=== PATIENT | female | born 1970 | race Caucasian/White ===

== ENCOUNTER 2020-04-07 12:22 | Emergency (ER) | payer BC ==
[~2020-04-07] VITALS: Ht 162.6 cm; Wt 61.5 kg
[2020-04-07 12:22] VITALS: BP 121/62
[2020-04-07] MEDS ORDERED: PRED-220 PO (13:00)
[2020-04-07] MEDS ORDERED: HYDR-3165 PO (13:00)
--- NOTE | 2020-04-07 13:01 | PHYS DOC ---
General Adult EDM: Chief Complaint: SHOULDER INJURY HPI: HPI: 49-year-old female presents with a left arm and shoulder pain. The patient has been having numbness and tingling in her third and fourth digits mostly at night for the last couple of weeks. It has gotten worse this week so she went to the chiropractor. She had an adjustment of her neck couple of days ago. Over the last 2 days, her numbness is spread and now she has tingling in the funny sensation in all 5 fingers. The pain now radiates up past her elbow all the way to her shoulder. Today it is a throbbing sensation and she had a lot of difficulty sleeping last night. Patient has tried heat at home without relief. She has not taken any medication. No history of previous shoulder or neck trauma. No surgical history in this area. 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 Review of Systems: Review of Systems: Constitutional: Denies fever or chills Eyes: Denies change in visual acuity HENT: Denies nasal congestion or sore throat Respiratory: Denies cough or shortness of breath Cardiovascular: Denies chest pain or edema GI: Denies abdominal pain, nausea, vomiting, bloody stools or diarrhea : Denies dysuria Musculoskeletal: Left shoulder and arm pain Integument: Denies rash Neurologic: Denies headache, focal weakness or sensory changes Endocrine: Denies polyuria or polydipsia Lymphatic: Denies swollen glands Psychiatric: Denies depression or anxiety Allergies: Allergies: Allergies Coded Allergies Type Severity Reaction Last Updated Verified No Known Drug Allergies 04/07/20 No Physical Exam: PE: Constitutional: Well developed, well nourished, no acute distress, non-toxic appearance. [] HENT: Normocephalic, atraumatic, bilateral external ears normal, oropharynx moist, no oral exudates, nose normal. [] Eyes: PERRLA, EOMI, conjunctiva normal, no discharge. [] Neck: Normal range of motion, no tenderness, supple, no stridor. [] Cardiovascular:Heart rate regular rhythm, no murmur [] Lungs & Thorax: Bilateral breath sounds clear to auscultation [] Abdomen: Bowel sounds normal, soft, no tenderness, no masses, no pulsatile masses. [] Skin: Warm, dry, no erythema, no rash. [] Back: No tenderness, no CVA tenderness. [] Extremities: Worsening of symptoms with compression over the carpal tunnel. Shoulder normal range of motion. [] Neurologic: Alert and oriented X 3, normal motor function, normal sensory function, no focal deficits noted. [] Psychologic: Affect normal, judgement normal, mood normal. [] EKG: EKG: [] Radiology/Procedures: Radiology/Procedures: [] Impressions: CERVICAL SPINE 2-3V DATE: 04/07/2020 12:50 PM INDICATION: Reason: radiculopathy / Spl. Instructions: Pt unable to remove earrings, pt shielded / History: COMPARISON: None. FINDINGS: The cervical spine is visualized to the level of the cervicothoracic junction on the lateral views. Bones/Alignment: No evidence of acute fracture. There is no listhesis. Normal alignment of the lateral masses of C1 on C2. Joints: Mild degenerative disc disease The facets are normally aligned. Soft tissue: No significant prevertebral soft tissue swelling. IMPRESSION: Mild cervical spondylosis Electronically signed by: Maribell Cuevas MD (04/07/2020 1:22 PM) [id number] DICTATED AND SIGNED BY: MARIBELL CUEVAS MD DATE: 04/07/20 1322 CC: RICHARDSON ENRIQUEZ DO; PCP,NO ~ Heart Score: Risk Factors: Risk Factors: DM, Current or recent (<one month) smoker, HTN, HLP, family history of CAD, obesity. Risk Scores: Score 0 - 3: 2.5% MACE over next 6 weeks - Discharge Home Score 4 - 6: 20.3% MACE over next 6 weeks - Admit for Clinical Observation Score 7 - 10: 72.7% MACE over next 6 weeks - Early Invasive Strategies Course & Med Decision Making: Course & Med Decision Making Pertinent Labs and Imaging studies reviewed. (See chart for details) The patient's story is consistent with carpal tunnel. The extension to the other fingers and expansion of the arm is likely due to some swelling of the nerves in the neck. I will treat her with steroids and [place] for the next couple days. She is stable for discharge at this time. [] Dragon Disclaimer: Dragon Disclaimer: This electronic medical record was generated, in whole or in part, using a voice recognition dictation system. Departure Departure: Impression: Primary Impression: Carpal tunnel syndrome, left Additional Impression: Cervical radiculopathy Disposition: 01 DC HOME SELF CARE/HOMELESS Condition: STABLE Referrals: PCP,HONG (PCP) Scripts Prednisone (PREDNISONE) 10 Mg Tablet 10 MG PO UD for PREDNISONE TAPER, #24 TAB 0 Refills Take 4 tablets by mouth daily for 3 days, then take 3 tablets by mouth daily for 2 days, then take 2 tablet by mouth daily for 2 days, then take 1 tablet by mouth daily for 2 days, then stop. Prov: RICHARDSON ENRIQUEZ DO 04/07/20 Hydrocodone Bit/Acetaminophen (NORCO 5-325 TABLET) 1 Each Tablet 1 TAB PO PRN Q6HRS PRN for PAIN, #10 TAB 0 Refills Prov: RICHARDSON ENRIQUEZ DO 04/07/20 RICHARDSON ENRIQUEZ DO Apr 07, 2020 13:01
--- NOTE | 2020-04-07 13:25 | RAD ---
CERVICAL SPINE 2-3V DATE: 04/07/2020 12:50 PM INDICATION: Reason: radiculopathy / Spl. Instructions: Pt unable to remove earrings, pt shielded / History: COMPARISON: None. FINDINGS: The cervical spine is visualized to the level of the cervicothoracic junction on the lateral views. Bones/Alignment: No evidence of acute fracture. There is no listhesis. Normal alignment of the lateral masses of C1 on C2. Joints: Mild degenerative disc disease The facets are normally aligned. Soft tissue: No significant prevertebral soft tissue swelling. IMPRESSION: Mild cervical spondylosis Electronically signed by: Spencer Hedrick MD (04/07/2020 1:22 PM) [id number]
== END 2020-04-07 13:36 | disposition home or self-care (01) ==
LOC: ER 12:22
DX: G56.02 Carpal tunnel syndrome, left upper limb (principal); M54.12 Radiculopathy, cervical region
CPT/HCPCS: 72040; 99283